=== PATIENT | male | born 1955 | race Asian ===

== ENCOUNTER 2017-03-25 16:31 | Emergency (ER) | payer MEDICARE, OTHER ==
[~2017-03-25] VITALS: Ht 175.3 cm; Wt 84.0 kg
[~2017-03-25 16:31] MED LIST: AMLO-512 PO; COLC0.6T67 PO; METF500T4 PO; NAPR-1181; RANI150C4 PO
[2017-03-25] MEDS ORDERED: LOSA25TA21 PO (16:38)
[2017-03-25] MEDS ORDERED: IXEK80AU2 PO (16:38)
[2017-03-25] MEDS ORDERED: [UNRECOGNIZED DRUG - CODE] IV (16:38)
[2017-03-25] MEDS ORDERED: PRAV10TA39 PO (16:38)
[2017-03-25 19:34] VITALS: BP 128/87
== END 2017-03-25 19:35 | disposition home or self-care (01) ==
LOC: EMS 16:35
DX: J32.9 Chronic sinusitis, unspecified (principal); I10 Essential (primary) hypertension
CPT/HCPCS: 82962; 99283

== ENCOUNTER 2017-05-19 22:17 | Inpatient (IN) | payer MEDICARE, OTHER ==
[~2017-05-19] VITALS: Ht 175.3 cm; Wt 87.8 kg
[~2017-05-19 22:17] MED LIST changes: +IXEK80AU2 PO; +LOSA25TA21 PO; +PRAV10TA39 PO; +[UNRECOGNIZED DRUG - CODE] IV
[2017-05-19] MEDS ORDERED: METO25XL PO (22:29)
[2017-05-19] MEDS ORDERED: ATOR40TA28 PO (22:29)
[2017-05-19] MEDS ORDERED: PANT40TA25 PO (22:29)
[2017-05-19 22:39] LABS: EOSINOPHILS % (AUTO) 2.8 % (1.0-6.0); HEMATOCRIT 45.6 % (41-53); HEMOGLOBIN 15.6 g/dL (13.5-17.5); MEAN CORPUSCULAR HEMOGLOBIN 30.7 pg (26.0-34.0); MEAN CORPUSCULAR HGB CONC 34.1 G/dL (31.0-37.0); MEAN CORPUSCULAR VOLUME 90 fL (80-100); MONOCYTES # (AUTO) 0.5 K/uL (0.1-1.0); NEUTROPHILS # (AUTO) 4.2 K/uL (1.8-7.7); NEUTROPHILS % (AUTO) 60.2 % (40.0-70.0); PLATELET COUNT (AUTO) 204 K/uL (150-450); RED BLOOD CELL COUNT(AUTO) 5.07 MIL/uL (4.50-5.90); RED CELL DISTRIBUTION WIDTH 13.2 % (11.5-14.5)
[2017-05-19] MEDS ORDERED: NITROGLYCERIN 0.4 MG SUBLINGUAL TABLET #25 SL ONE ×2 (22:47→23:00)
[2017-05-19 22:48] LABS: ANION GAP 6 mmol/L (8-16); CALCIUM, TOTAL 9.6 mg/dL (8.8-10.5); CARBON DIOXIDE 32 mmol/L (22-29); CHLORIDE 103 mmol/L (98-107); CREATININE 1.07 mg/dL (0.60-1.30); GLOMERULAR FILTR. RATE CALC > 60 mL/min (>60); POTASSIUM 3.2 mmol/L (3.5-5.1); SODIUM SERUM 141 mmol/L (136-145); UREA NITROGEN, BLOOD 13 mg/dL (7-18)
[2017-05-19 22:51] LABS: PROTHROMBIN TIME 10.7 SEC (9.4-11.6)
[2017-05-19 22:54] LABS: ALANINE AMINOTRANSFERASE 80 U/L (12-78); ALBUMIN 4.3 g/dL (3.4-5.0); ASPARTATE AMINOTRANSFERASE 31 U/L (15-37); BILIRUBIN,TOTAL 0.5 mg/dL (0.1-1.0); CREATINE KINASE, TOTAL 69 U/L (39-308); TOTAL PROTEIN, SERUM 7.5 g/dL (6.4-8.2)
[2017-05-19 22:59] LABS: APPEARANCE,URINE CLEAR (CLEAR); GLUCOSE, URINE (UA) NEGATIVE (NEGATIVE); KETONES,URINE NEGATIVE (NEGATIVE); LEUKOCYTE ESTERASE ,URINE NEGATIVE (NEGATIVE); OCCULT BLOOD,URINE NEGATIVE (NEGATIVE); PROTEIN,URINE NEGATIVE (NEGATIVE)
[2017-05-19 23:01] LABS: ADD UA MICROSCOPIC NO
[2017-05-19 23:06] LABS: B-TYPE NATRIURETIC PEPTIDE 17 pg/mL (0-100)
[2017-05-19] MEDS ORDERED: POTASSIUM CHLORIDE 10% 40 MEQ/30 ML LIQUID UDCUP PO ONE (23:30)
[2017-05-20] MEDS ORDERED: ACETAMINOPHEN 325 MG TABLET PO PRN
[2017-05-20] MEDS ORDERED: 0.9% SODIUM CHLORIDE 10 ML SYRINGE IVP PRN
[2017-05-20 00:09] LABS: GLUCOSE,POINT OF CARE 140 MG/DL (70-110)
[2017-05-20] MEDS ORDERED: ONDANSETRON HCL 4 MG/2 ML VIAL IVP PRN ×2 (00:15)
[2017-05-20] MEDS ORDERED: ZOLPIDEM TARTRATE 5 MG TABLET PO PRN (00:15)
[2017-05-20] MEDS ORDERED: BISACODYL 10 MG RECTAL RECTAL SUPPOSITORY PR PRN (00:15)
[2017-05-20] MEDS ORDERED: INSULIN ASPART 100 UNITS/ML SQ PRN (00:15)
[2017-05-20] MEDS ORDERED: ALBUTEROL SULFATE 2.5 MG/0.5 ML NEB SOLUTION NEB PRN (00:15)
[2017-05-20] MEDS ORDERED: MAGNESIUM HYDROXIDE SUSPENSION 30 ML UDCUP PO PRN (00:15)
[2017-05-20] MEDS: NITROGLYCERIN 2% (1 GM=INCH) PACKET TP SCH ×3 (00:15→12:15)
[2017-05-20] MEDS: METOPROLOL TARTRATE 50 MG TABLET PO SCH ×3 (00:15→12:15)
[2017-05-20] MEDS ORDERED: ACETAMINOPHEN 500 MG TABLET PO PRN (00:15)
[2017-05-20] MEDS ORDERED: DEXTROSE 50%-WATER 25 GM/50 ML SYRINGE IVP PRN (00:15)
[2017-05-20] MEDS ORDERED: MORPHINE SULFATE 2 MG/ML SYRINGE IVP PRN ×2 (00:15)
[2017-05-20] MEDS ORDERED: IPRATROPIUM BROMIDE 0.5 MG/2.5 ML NEB SOLUTION NEB PRN (00:15)
[2017-05-20 00:45] VITALS: BP 115/74
[2017-05-20 05:04] VITALS: BP 108/55
[2017-05-20 06:52] LABS: BASOPHILS % (AUTO) 1.2 % (0.0-2.0); EOSINOPHILS % (AUTO) 2.8 % (1.0-6.0); HEMATOCRIT 40.4 % (41-53); HEMOGLOBIN 13.9 g/dL (13.5-17.5); LYMPHOCYTES # (AUTO) 1.9 K/uL (1.0-4.8); LYMPHOCYTES % (AUTO) 26.8 % (22.0-44.0); MEAN CORPUSCULAR HEMOGLOBIN 31.1 pg (26.0-34.0); MEAN CORPUSCULAR HGB CONC 34.5 G/dL (31.0-37.0); MEAN CORPUSCULAR VOLUME 90 fL (80-100); MONOCYTES # (AUTO) 0.5 K/uL (0.1-1.0); MONOCYTES % (AUTO) 7.8 % (2.0-9.0); NEUTROPHILS # (AUTO) 4.2 K/uL (1.8-7.7); NEUTROPHILS % (AUTO) 61.4 % (40.0-70.0); PLATELET COUNT (AUTO) 188 K/uL (150-450); RED BLOOD CELL COUNT(AUTO) 4.47 MIL/uL (4.50-5.90); RED CELL DISTRIBUTION WIDTH 13.1 % (11.5-14.5); WHITE BLOOD COUNT (AUTO) 6.9 K/uL (4.5-11.0)
[2017-05-20 07:02] LABS: ANION GAP 6 mmol/L (8-16); CALCIUM, TOTAL 9.1 mg/dL (8.8-10.5); CARBON DIOXIDE 30 mmol/L (22-29); CHLORIDE 106 mmol/L (98-107); CHOL/HDL RATIO 2.2 (4.2-7.3); CREATININE 0.96 mg/dL (0.60-1.30); GLOMERULAR FILTR. RATE CALC > 60 mL/min (>60); POTASSIUM 3.5 mmol/L (3.5-5.1); SODIUM SERUM 142 mmol/L (136-145); THYROID STIMULATING HORMONE 2.29 uIU/mL (0.36-3.74); UREA NITROGEN, BLOOD 13 mg/dL (7-18)
[2017-05-20 07:50] VITALS: BP 136/79
[2017-05-20] MEDS ORDERED: ENOXAPARIN SODIUM 40 MG/0.4 ML PF SYRINGE SQ SCH (09:00)
[2017-05-20] MEDS ORDERED: LOSARTAN POTASSIUM 25 MG TABLET PO SCH (09:00)
[2017-05-20] MEDS ORDERED: PANTOPRAZOLE SODIUM 40 MG DR TABLET PO SCH (09:00)
[2017-05-20 11:39] VITALS: BP 123/78
[2017-05-20 12:15] VITALS: BP 196/93
[2017-05-20] MEDS ORDERED: DOBUTamine HCL/D5W 500 MG/250 ML IV BAG [STRESS LAB ONLY] IV ONE ×2 (13:18→14:54)
[2017-05-20] MEDS ORDERED: METOPROLOL TARTRATE 5 MG/5 ML VIAL IVP ONE ×2 (13:55→14:54)
[2017-05-20 14:03] VITALS: BP 186/84
[2017-05-20 20:02] LABS: GLUCOSE,POINT OF CARE 106 MG/DL (70-110)
[2017-05-20 20:08] LABS: GLUCOSE,POINT OF CARE 124 MG/DL (70-110)
[2017-05-20] MEDS ORDERED: ATORVASTATIN CALCIUM 40 MG TABLET PO SCH (21:00)
== END 2017-05-20 14:55 | disposition home or self-care (01) | DRG 392 ==
LOC: EMS 22:22 → 5N 23:30
PROVIDERS: ADMIT Internal Medicine Geriatric Medicine; ATTEND Internal Medicine Geriatric Medicine
DX: K21.9 Gastro-esophageal reflux disease without esophagitis (principal); E11.9 Type 2 diabetes mellitus without complications; E78.5 Hyperlipidemia, unspecified; I20.9 Angina pectoris, unspecified; I10 Essential (primary) hypertension; M10.9 Gout, unspecified; R79.89 Other specified abnormal findings of blood chemistry
CPT/HCPCS: 82306; 82607; 82746; 82962; 83036; 83735; 84439; 84443; 93005; 93017; 93306; 93350; 99291; J1250; J3490

== ENCOUNTER 2018-04-15 17:01 | Emergency (ER) | payer MEDICARE, OTHER ==
[~2018-04-15] VITALS: Ht 177.8 cm; Wt 86.4 kg
[~2018-04-15 17:01] MED LIST changes: +ATOR40TA28 PO; -IXEK80AU2 PO; +LOSA25TA16 PO; -LOSA25TA21 PO; +METF-960 PO; -METF500T4 PO; +METO25XL PO; -NAPR-1181; +PANT40TA25 PO; -PRAV10TA39 PO; -RANI150C4 PO; -[UNRECOGNIZED DRUG - CODE] IV
[2018-04-15 17:33] LABS: BASOPHILS % (AUTO) 1.6 % (0.0-2.0); EOSINOPHILS % (AUTO) 4.7 % (1.0-6.0); HEMATOCRIT 42.5 % (41-53); HEMOGLOBIN 14.6 g/dL (13.5-17.5); LYMPHOCYTES # (AUTO) 1.8 K/uL (1.0-4.8); LYMPHOCYTES % (AUTO) 30.5 % (22.0-44.0); MEAN CORPUSCULAR HEMOGLOBIN 30.1 pg (26.0-34.0); MEAN CORPUSCULAR HGB CONC 34.4 G/dL (31.0-37.0); MEAN CORPUSCULAR VOLUME 87 fL (80-100); MONOCYTES # (AUTO) 0.4 K/uL (0.1-1.0); NEUTROPHILS # (AUTO) 3.4 K/uL (1.8-7.7); NEUTROPHILS % (AUTO) 56.2 % (40.0-70.0); PLATELET COUNT (AUTO) 203 K/uL (150-450); RED BLOOD CELL COUNT(AUTO) 4.86 MIL/uL (4.50-5.90); RED CELL DISTRIBUTION WIDTH 13.5 % (11.5-14.5)
[2018-04-15 17:41] LABS: ANION GAP 7 mmol/L (8-16); CALCIUM, TOTAL 8.6 mg/dL (8.8-10.5); CARBON DIOXIDE 28 mmol/L (22-29); CHLORIDE 102 mmol/L (98-107); GLOMERULAR FILTR. RATE CALC > 60 mL/min (>60); GLUCOSE,RANDOM 200 mg/dL (70-110); POTASSIUM 3.8 mmol/L (3.5-5.1); SODIUM SERUM 137 mmol/L (136-145); UREA NITROGEN, BLOOD 13 mg/dL (7-18)
[2018-04-15 17:48] LABS: ALANINE AMINOTRANSFERASE 65 U/L (12-78); ALBUMIN 3.8 g/dL (3.4-5.0); ALKALINE PHOSPHATASE 106 U/L (46-116); ASPARTATE AMINOTRANSFERASE 35 U/L (15-37); BILIRUBIN,TOTAL 0.5 mg/dL (0.1-1.0); TOTAL PROTEIN, SERUM 7.1 g/dL (6.4-8.2)
[2018-04-15 17:50] LABS: PROTHROMBIN TIME 10.4 SEC (9.4-11.6)
[2018-04-15 19:05] VITALS: BP 125/77
== END 2018-04-15 19:13 | disposition home or self-care (01) ==
LOC: EMS 17:02
DX: H53.8 Other visual disturbances (principal); E11.9 Type 2 diabetes mellitus without complications; K21.9 Gastro-esophageal reflux disease without esophagitis; E78.00 Pure hypercholesterolemia, unspecified; I10 Essential (primary) hypertension; I25.2 Old myocardial infarction; Z90.89 Acquired absence of other organs; Z98.890 Other specified postprocedural states; Z79.84 Long term (current) use of oral hypoglycemic drugs; Z79.899 Other long term (current) drug therapy
CPT/HCPCS: 70450; 93005; 99173; 99285

== ENCOUNTER 2018-08-10 22:55 | Emergency (ER) | payer MEDICARE, OTHER ==
[~2018-08-10] VITALS: Ht 175.3 cm; Wt 84.1 kg
[~2018-08-10 22:55] MED LIST changes: -LOSA25TA16 PO; +LOSA25TA41 PO
[2018-08-11 00:31] LABS: GLUCOSE,POINT OF CARE 172 MG/DL (70-110)
[2018-08-11 04:06] VITALS: BP 129/67
== END 2018-08-11 04:06 | disposition home or self-care (01) ==
LOC: EMS 22:57
DX: H53.9 Unspecified visual disturbance (principal); E11.9 Type 2 diabetes mellitus without complications; K21.9 Gastro-esophageal reflux disease without esophagitis; E78.00 Pure hypercholesterolemia, unspecified; I10 Essential (primary) hypertension; I25.2 Old myocardial infarction; Z79.84 Long term (current) use of oral hypoglycemic drugs
CPT/HCPCS: 99173

== ENCOUNTER 2018-10-09 05:55 | Emergency (ER) | payer MEDICARE ==
[~2018-10-09] VITALS: Ht 177.8 cm; Wt 84.1 kg
[2018-10-09 06:08] LABS: GLUCOSE,POINT OF CARE 112 MG/DL (70-110)
[2018-10-09 06:35] VITALS: BP 184/92
== END 2018-10-09 07:04 | disposition home or self-care (01) ==
LOC: EMS 05:57
DX: R20.2 Paresthesia of skin (principal); F41.9 Anxiety disorder, unspecified; I10 Essential (primary) hypertension; E11.9 Type 2 diabetes mellitus without complications; K21.9 Gastro-esophageal reflux disease without esophagitis; E78.00 Pure hypercholesterolemia, unspecified; I25.2 Old myocardial infarction; Z79.84 Long term (current) use of oral hypoglycemic drugs

== ENCOUNTER → 2021-03-13 | Outpatient (CLI) | payer MEDICARE, OTHER ==
[~2021-03-13] MED LIST changes: +AMLO-258 PO; -AMLO-512 PO; +ASPI-1444 PO; -COLC0.6T67 PO; +COLC0.6T73 PO; +FLUT16H NASAL; +IXEK80SY3 SQ; -LOSA25TA41 PO; +LOSA50TA37 PO; +METO-558 PO; -METO25XL PO; +OMEP10 PO; -PANT40TA25 PO; +TAMS-1 PO
== END | disposition home or self-care (01) ==
LOC: RADMN 10:38
PROVIDERS: ATTEND Internal Medicine
DX: M17.12 Unilateral primary osteoarthritis, left knee (principal); M25.511 Pain in right shoulder
CPT/HCPCS: 73030-TC; 73562-TC

== ENCOUNTER 2024-03-16 12:46 | Emergency (ER) | payer MEDICARE, OTHER ==
[~2024-03-16] VITALS: Ht 170.2 cm; Wt 75.0 kg
[~2024-03-16 12:46] MED LIST changes: +COLC-3 PO; -COLC0.6T73 PO; -FLUT16H NASAL; +FLUT16SP NASAL; +LOSA-382 PO; -LOSA50TA37 PO; +METF-1211 PO; -METF-960 PO; +METO-325 PO; -METO-558 PO; -OMEP10 PO; +OMEP10CA38 PO
[2024-03-16] MEDS ORDERED: DULA0.75 SQ (12:51)
[2024-03-16] MEDS ORDERED: CHOL500013 PO (12:51)
[2024-03-16 12:54] VITALS: BP 138/90; PULSE 92; RESP 18; TEMP 99; O2SAT 99
[2024-03-16] MEDS: SODIUM CHLORIDE 0.9% 1,000 ML IV ONE (13:44)
[2024-03-16 13:48] LABS: BASOPHILS % (AUTO) 1.3 % (0.0-2.0); HEMATOCRIT 43.5 % (41-53); HEMOGLOBIN 14.3 g/dL (13.5-17.5); LYMPHOCYTES # (AUTO) 0.7 K/uL (1.0-4.8); LYMPHOCYTES % (AUTO) 14.1 % (22.0-44.0); MEAN CORPUSCULAR HEMOGLOBIN 29.5 pg (26.0-34.0); MEAN CORPUSCULAR VOLUME 89 fL (80-100); MONOCYTES # (AUTO) 0.5 K/uL (0.1-1.0); MONOCYTES % (AUTO) 10.2 % (2.0-9.0); NEUTROPHILS # (AUTO) 3.7 K/uL (1.8-7.7); NEUTROPHILS % (AUTO) 72.4 % (40.0-70.0); PLATELET COUNT (AUTO) 153 K/uL (150-450); RED BLOOD CELL COUNT(AUTO) 4.87 MIL/uL (4.50-5.90); RED CELL DISTRIBUTION WIDTH 14.1 % (11.5-14.5); WHITE BLOOD COUNT (AUTO) 5.1 K/uL (4.5-11.0)
[2024-03-16 13:55] LABS: ANION GAP 12 mmol/L (8-16); CARBON DIOXIDE 27 mmol/L (22-29); CHLORIDE 102 mmol/L (98-107); CREATININE 1.05 mg/dL (0.60-1.30); GLOMERULAR FILTR. RATE CALC > 60 mL/min (>60); GLUCOSE,RANDOM 196 mg/dL (70-110); POTASSIUM 3.7 mmol/L (3.5-5.1); SODIUM SERUM 141 mmol/L (136-145); UREA NITROGEN, BLOOD 10 mg/dL (7-18)
[2024-03-16 14:03] LABS: TROPONIN I-HIGH SENSITIVITY 8 ng/L (<76)
[2024-03-16 14:11] LABS: ALANINE AMINOTRANSFERASE 91 U/L (12-78); ALBUMIN 3.7 g/dL (3.4-5.0); ALKALINE PHOSPHATASE 100 U/L (46-116); ASPARTATE AMINOTRANSFERASE 56 U/L (15-37); BILIRUBIN,TOTAL 0.6 mg/dL (0.1-1.0); LIPASE 41 U/L (16-77); THYROID STIMULATING HORMONE 2.02 uIU/mL (0.36-3.74); TOTAL PROTEIN, SERUM 6.8 g/dL (6.4-8.2)
[2024-03-16 14:17] LABS: COVID AG,FIA SOURCE NASAL SWAB
[2024-03-16 14:41] LABS: INFLUENZA TYPE A NEGATIVE FOR TYPE A (NEGATIVE); INFLUENZA TYPE B NEGATIVE FOR TYPE B (NEGATIVE)
[2024-03-16 14:46] LABS: APPEARANCE,URINE CLEAR (CLEAR); BILIRUBIN,URINE NEGATIVE (NEGATIVE); COLOR,URINE COLORLESS (YELLOW); GLUCOSE, URINE (UA) >=1000 mg/dL (NEGATIVE); KETONES,URINE NEGATIVE (NEGATIVE); LEUKOCYTE ESTERASE ,URINE NEGATIVE (NEGATIVE); NITRATE,URINE NEGATIVE (NEGATIVE); OCCULT BLOOD,URINE NEGATIVE (NEGATIVE); PROTEIN,URINE NEGATIVE (NEGATIVE); SPECIFIC GRAVITIY, URINE 1.025 (1.003-1.030); UROBILINOGEN,URINE <=1.0 mg/dL (<=1.0)
[2024-03-16 14:57] LABS: SARS-COV2 (COVID) ANTIGEN,FIA Positive (Negative)
[2024-03-16 15:07] LABS: ALCOHOL, URINE DRUG SCREEN NEGATIVE (NEGATIVE); AMPHET/METH SCREEN,URINE NEGATIVE (NEGATIVE); BARBITURATE SCREEN, URINE NEGATIVE (NEGATIVE); BENZODIAZEPINES SCREEN,URINE NEGATIVE (NEGATIVE); CANNABINOID SCREEN,URINE NEGATIVE (NEGATIVE); COCAINE SCREEN,URINE NEGATIVE (NEGATIVE); METHADONE SCREEN, URINE NEGATIVE (NEGATIVE); OPIATE SCREEN,URINE NEGATIVE (NEGATIVE); PHENCYCLIDINE SCREEN,URINE NEGATIVE (NEGATIVE)
[2024-03-16] MEDS ORDERED: NIRM1TAB10 PO (15:08)
[2024-03-16 15:14] LABS: BACTERIA,URINE None Seen /HPF (None Seen); RBC,URINE None Seen /HPF (0-2); SQUAMOUS EPITHELIAL CELL,UR Rare /LPF (None Seen); WBC,URINE None Seen /HPF (0-5)
== END 2024-03-16 15:50 | disposition home or self-care (01) ==
LOC: EMS 12:46
DX: U07.1 COVID-19 (principal); E11.9 Type 2 diabetes mellitus without complications; E78.00 Pure hypercholesterolemia, unspecified; I10 Essential (primary) hypertension; I25.2 Old myocardial infarction; K21.9 Gastro-esophageal reflux disease without esophagitis; M10.9 Gout, unspecified
CPT/HCPCS: 99284; 96360; 87426; 80053; 81001; 83690; 84443; 84484; 85025; 87804; 36415; 93005; 80307; J7030

== ENCOUNTER 2024-04-01 08:39 | Emergency (ER) | payer MEDICARE, OTHER ==
[~2024-04-01] VITALS: Ht 177.8 cm; Wt 71.0 kg
[~2024-04-01 08:39] MED LIST changes: +CHOL500013 PO; +DULA0.75 SQ; +NIRM1TAB10 PO
[2024-04-01 09:01] VITALS: BP 141/73; PULSE 96; RESP 16; TEMP 99.1; O2SAT 98
[2024-04-01 09:12] LABS: COVID AG,FIA SOURCE NASAL SWAB
[2024-04-01 09:33] LABS: INFLUENZA TYPE A NEGATIVE FOR TYPE A (NEGATIVE); INFLUENZA TYPE B NEGATIVE FOR TYPE B (NEGATIVE)
[2024-04-01 09:35] LABS: SARS-COV2 (COVID) ANTIGEN,FIA Positive (Negative)
[2024-04-01] MEDS: ACETAMINOPHEN 500 MG TABLET PO ONE (09:54)
[2024-04-01] MEDS ORDERED: BENZ-227 PO (10:50)
== END 2024-04-01 11:08 | disposition home or self-care (01) ==
LOC: EMS 08:39
DX: U07.1 COVID-19 (principal); E11.9 Type 2 diabetes mellitus without complications; E78.00 Pure hypercholesterolemia, unspecified; I10 Essential (primary) hypertension; M10.9 Gout, unspecified; K21.9 Gastro-esophageal reflux disease without esophagitis; Z90.89 Acquired absence of other organs; Z98.890 Other specified postprocedural states; Z79.82 Long term (current) use of aspirin
CPT/HCPCS: 71046; 82962; 87804; 99284

== ENCOUNTER 2024-07-08 11:24 | Emergency (ER) | payer MEDICARE, OTHER ==
[~2024-07-08] VITALS: Ht 175.3 cm; Wt 79.0 kg
[~2024-07-08 11:24] MED LIST changes: +BENZ-227 PO; -NIRM1TAB10 PO
[2024-07-08 11:29] VITALS: BP 149/82; PULSE 89; RESP 16; TEMP 98.2; O2SAT 98
[2024-07-08 13:28] LABS: COVID AG,FIA SOURCE NASAL SWAB
[2024-07-08] MEDS ORDERED: AMOX250C4 PO (13:38)
[2024-07-08 13:56] LABS: SARS-COV2 (COVID) ANTIGEN,FIA Negative (Negative)
[2024-07-08 13:57] LABS: INFLUENZA TYPE A NEGATIVE FOR TYPE A (NEGATIVE); INFLUENZA TYPE B NEGATIVE FOR TYPE B (NEGATIVE)
== END 2024-07-08 14:05 | disposition home or self-care (01) ==
LOC: EMS 11:24
DX: K11.20 Sialoadenitis, unspecified (principal); E11.9 Type 2 diabetes mellitus without complications; I10 Essential (primary) hypertension; K21.9 Gastro-esophageal reflux disease without esophagitis; E78.00 Pure hypercholesterolemia, unspecified; R51.9 Headache, unspecified; Z79.82 Long term (current) use of aspirin; Z79.84 Long term (current) use of oral hypoglycemic drugs; Z90.89 Acquired absence of other organs; Z79.899 Other long term (current) drug therapy; Z20.822 Contact with and (suspected) exposure to COVID-19
CPT/HCPCS: 87804; 99283